=== PATIENT | male | born 1980 | race Caucasian/White ===

== ENCOUNTER 2021-10-28 16:51 | Emergency (ER) | payer MEDICAID ==
[~2021-10-28] VITALS: Ht 177.8 cm; Wt 79.4 kg
[2021-10-28 17:03] VITALS: BP 132/98
--- NOTE | 2021-10-28 17:03 | NUR ---
PT JEFERSON AND TAKEN TO LOBBY
[2021-10-28] MEDS ORDERED: CEPH-588 PO (18:47)
[2021-10-28] MEDS ORDERED: SULF-58 PO (18:47)
[2021-10-28 19:22] VITALS: BP 132/98
--- NOTE | 2021-10-28 19:22 | NUR ---
Patient discharged with v/s stable. Written and verbal after care instructions given and explained. Patient alert, oriented and verbalized understanding of instructions. Ambulatory with steady gait. All questions addressed prior to discharge. ID band removed. Patient advised to follow up with PMD. Rx of KEFLEX AND BACTRIM given. Patient educated on indication of medication including possible reaction and side effects. Opportunity to ask questions provided and answered.
[2021-10-29] MEDS ORDERED: IBUP-1842 PO (02:05)
== END 2021-10-28 19:22 | disposition home or self-care (01) ==
LOC: MED 16:51
DX: L03.113 Cellulitis of right upper limb (principal); F15.90 Other stimulant use, unspecified, uncomplicated; Z79.899 Other long term (current) drug therapy
CPT/HCPCS: 99283

== ENCOUNTER 2021-10-29 01:35 | Emergency (ER) | payer MEDICAID ==
[~2021-10-29] VITALS: Ht 177.8 cm; Wt 79.4 kg
[~2021-10-29 01:35] MED LIST: CEPH-588 PO; SULF-58 PO
[2021-10-29 01:57] VITALS: BP 150/94
[2021-10-29] MEDS ORDERED: IBUP-1842 PO (02:05)
[2021-10-29] MEDS ORDERED: KETOROLAC 60 MG/2 ML VIAL IM ONE (02:05)
[2021-10-29] MEDS ORDERED: cefTRIAXone 1,000 MG in LIDOCAINE MPF 1% 2.1 ML IM ONE (02:05)
--- NOTE | 2021-10-29 02:10 | NUR ---
ERMD EVALUATED PATIENT IN TRIAGE.
[2021-10-29] MEDS ORDERED: cefTRIAXone 1,000 MG VIAL ONE (02:37)
[2021-10-29] MEDS ORDERED: LIDOCAINE MPF 1% 5 ML ONE (02:39)
--- NOTE | 2021-10-29 02:45 | NUR ---
PATIENT OFFERED FOOD AND TRANSPORTATION ASSISTANCE AND REFUSED. PATIENT GIVEN ICE PACKS FOR PAIN MANAGEMENT AT HOME PER REQUEST.
[2021-10-29 02:55] VITALS: BP 138/78
== END 2021-10-29 02:55 | disposition home or self-care (01) ==
LOC: MED 01:35
DX: L03.113 Cellulitis of right upper limb (principal); Z79.899 Other long term (current) drug therapy
CPT/HCPCS: 96372; 99284; J0696; J1885; J2001

== ENCOUNTER 2021-10-30 03:14 | Inpatient (IN) | payer MEDICAID, SELFPAY ==
[~2021-10-30] VITALS: Ht 177.8 cm; Wt 90.3 kg
[~2021-10-30 03:14] MED LIST changes: +IBUP-1842 PO
[2021-10-30 03:31] VITALS: BP 141/91
--- NOTE | 2021-10-30 03:37 | NUR ---
TO LOBBY TO A/W EVALUATION
--- NOTE | 2021-10-30 03:50 | NUR ---
40 Y/O M PRESENTS TO ED WITH C/O EDEMA TO RT HAND. PT SEEN IN THIS ER ON 10/29 FOR SIMILAR COMPLAINT AND GIVNE RX FOR KEFLEX AND BACTRIM. PT STATES S/P TAKING MEDICATION HE HAD MORE PAIN AND SWELLING. +EDEMA TO RT HAND MEDHX- METH IV DRUG USER NKA
[2021-10-30] MEDS ORDERED: KETOROLAC 15 MG/ML VIAL IVP ONE (04:55)
[2021-10-30] MEDS ORDERED: VANCOMYCIN 1,000 MG in DEXTROSE 5% 250 ML IV ONE (04:55)
--- NOTE | 2021-10-30 05:09 | NUR ---
pt to chB
--- NOTE | 2021-10-30 05:20 | NUR ---
MANUFACTURING ENGINEER ASSEMBLY TEXTED FOR ADMISSION
--- NOTE | 2021-10-30 05:26 | NUR ---
ATTEMPTED IV INSERTION x2 UNSUCCESSFUL. DR. OG NOTIFIED.
[2021-10-30] MEDS ORDERED: VANCOMYCIN 1,000 MG VIAL ONE ×2 (06:20→20:26)
[2021-10-30] MEDS ORDERED: KETOROLAC 15 MG/ML VIAL ONE (06:21)
--- NOTE | 2021-10-30 06:35 | NUR ---
PT MEDICATED PER ERMD ORDERS. ALL NEEDS MET.
--- NOTE | 2021-10-30 07:00 | NUR ---
COVID SWAB COLELCTED AND TAKEN TO LAB.
--- NOTE | 2021-10-30 07:02 | NUR ---
REPORT GIVEN TO HUMBERTO GALLAGHER. TRANSFER OF CARE AT THIS TIME.
[2021-10-30] MEDS ORDERED: MAG SULF 2000 MG/WATER PREMIX 50 ML IV PRN (07:20)
[2021-10-30] MEDS ORDERED: ONDANSETRON 4 MG/2 ML VIAL IVP PRN (07:20)
[2021-10-30] MEDS ORDERED: LORazepam 2 MG/ML VIAL IM/IVP PRN (07:20)
[2021-10-30] MEDS ORDERED: DOCUSATE SODIUM 100 MG GELCAP PO PRN (07:20)
[2021-10-30] MEDS ORDERED: HYDROcodone/APAP 5/325 MG 1 TAB TAB PO PRN (07:20)
[2021-10-30] MEDS ORDERED: ZOLPIDEM 5 MG TAB PO PRN (07:20)
[2021-10-30] MEDS ORDERED: POTASSIUM CHLORIDE 10 MEQ TABER PO PRN (07:20)
[2021-10-30] MEDS ORDERED: ACETAMINOPHEN 325 MG TAB PO PRN (07:20)
[2021-10-30] MEDS ORDERED: SODIUM PHOS / POTASSIUM PHOS 1 PKT PDR PO PRN (07:20)
[2021-10-30 07:26] LABS: ANION GAP 13.4 (8-16); CARBON DIOXIDE 28.3 mmol/L (21-32); CREATININE 1.1 mg/dL (0.6-1.3); POTASSIUM 4.7 mmol/L (3.5-5.1)
[2021-10-30 07:35] LABS: BASOPHILS # (AUTO) 0.1 K/uL (0.00-0.22); BASOPHILS % (AUTO) 0.8 % (0.0-2.0); EOSINOPHILS # (AUTO) 0.1 K/uL (0-0.4); EOSINOPHILS % (AUTO) 1.2 % (0.0-4.0); HEMATOCRIT 42.2 % (36-52); HEMOGLOBIN 14.3 g/dL (12.0-18.0); LYMPHOCYTES # (AUTO) 1.1 K/uL (2.0-11.5); LYMPHOCYTES % (AUTO) 15.7 % (20.5-51.1); MEAN CORPUSCULAR HEMOGLOBIN 29 pg (27-31); MEAN CORPUSCULAR HGB CONC 34 g/dL (33-37); MEAN CORPUSCULAR VOLUME 83.9 fL (80-94); MONOCYTES # (AUTO) 0.6 K/uL (0.8-1.0); NEUTROPHILS # (AUTO) 5.4 K/uL (1.8-7.7); NEUTROPHILS % (AUTO) 74.3 % (42.2-75.2); PLATELET COUNT (AUTO) 265 K/uL (140-450); RED BLOOD CELL COUNT(AUTO) 5.03 MIL/uL (4.20-6.10); WHITE BLOOD COUNT (AUTO) 7.2 K/uL (4.8-10.8)
--- NOTE | 2021-10-30 07:46 | NUR ---
PT AMBULATED TO RESTROOM FOR URINE SAMPLE. SAMPLE COLLECTED AND WALKED TO LAB
[2021-10-30] MEDS: NACL 0.9% 1,000 ML IV SCH ×3 (08:00→19:48)
[2021-10-30 08:32] LABS: APPEARANCE,URINE CLEAR (CLEAR); BILIRUBIN,URINE NEGATIVE (NEGATIVE); BLOOD, URINE NEGATIVE (NEGATIVE); COLOR,URINE YELLOW (YELLOW); LEUKOCYTE ESTERASE ,URINE NEGATIVE (NEGATIVE); NITRITE, URINE NEGATIVE (NEGATIVE); UGLUCOSE NEGATIVE (NEGATIVE)
--- NOTE | 2021-10-30 09:01 | NUR ---
PT C/O 04/24 HAND PAIN AND REQUESTING PAIN MEDICATION, WILL CARRY OUT PRN ORDER
[2021-10-30] MEDS: MORPHINE SULFATE 2 MG/ML SYR IVP PRN ×3 (09:25→21:43)
[2021-10-30] MEDS ORDERED: VANCOMYCIN PER PHARMACY MC PRN (09:35)
[2021-10-30 09:51] LABS: BENZODIAZEPINE, URINE POSITIVE ng/mL (NEG <=200); CANNABINOID, URINE POSITIVE ng/mL (NEG <=50)
[2021-10-30 10:03] LABS: PROTHROMBIN TIME 9.5 secs (10.8-13.4)
[2021-10-30 11:08] LABS: CHOL/HDL RATIO 3.3 (1-4.5); PHOSPHORUS 3.8 mg/dL (2.5-4.9); THYROID STIMULATING HORMONE 1.73 uIU/mL (0.34-3.74)
--- NOTE | 2021-10-30 12:45 | NUR ---
PT TAKEN TO BED 12 FOR ECHO. WILL RETURN TO [facility].
--- NOTE | 2021-10-30 13:21 | NUR ---
PT PROVIDED WITH LUNCH TRAY
[2021-10-30] MEDS ORDERED: PIPERACILLIN/TAZOBACTAM 3.375 GM VIAL IV ONE ×2 (13:56→20:27)
--- NOTE | 2021-10-30 14:00 | NUR ---
PT C/O 6/10 HAND PAIN AND REQUESTING PAIN MEDICATION, WILL CARRY OUT PRN ORDER
[2021-10-30] MEDS: PIPERACILLIN/TAZOBACTAM 3.375 GM in DEXTROSE 5% 50 ML IV SCH ×2 (15:05→20:34)
--- NOTE | 2021-10-30 18:27 | NUR ---
PT GIVEN DINNER TRAY
[2021-10-30] MEDS ORDERED: VANCOMYCIN HCL 1.25 GM in DEXTROSE 5% 250 ML IV SCH (19:00)
--- NOTE | 2021-10-30 19:54 | NUR ---
REPORT GIVEN TO ARELI PAUL, TRANSFER OF CARE AT THIS TIME
--- NOTE | 2021-10-30 19:54 | NUR ---
PT REFUSED IV FLUIDS, STATED "THIS ISNT DOING ANYTHING" I DONT WANT IT.
--- NOTE | 2021-10-30 20:00 | NUR ---
REPORT RECEIVED FROM HUMBERTO GALLAGHER. ASSUMED CARE AT THIS TIME.
--- NOTE | 2021-10-30 21:35 | NUR ---
PT REQUESTING TO STOP VANCOMYCIN IVPB. PER PT "I JUST NEED REST TO GET BETTER. STOP THIS." INFUSION STOPPED AT THIS TIME. NADR NOTED.
--- NOTE | 2021-10-30 22:09 | NUR ---
PT SEATED UPRIGHT IN CHAIR WITH EYES CLOSED. NAD NOTED. WILL CONTINUE TO MONITOR.
--- NOTE | 2021-10-31 01:19 | NUR ---
PT SEATED UPRIGHT IN CHAIR WITH EYES CLOSED. NAD NOTED. WILL CONTINUE TO MONITOR.
[2021-10-31 02:38] VITALS: BP 141/87
[2021-10-31] MEDS: NACL 0.9% 1,000 ML IV SCH (03:20)
--- NOTE | 2021-10-31 04:35 | NUR ---
PT NOT FOUND IN DESIGNATED SEAT. UNABLE TO LOCATE PATIENT IN ER LOBBY OR OUTSIDE.
--- NOTE | 2021-10-31 04:37 | NUR ---
ROSARIO COBB, PT LEFT ER
--- NOTE | 2021-10-31 04:48 | NUR ---
PT ELOPED FACILITY AT THIS TIME. PT FOUND HIDING IN BUSHES NEAR HR BUILDING. PT STATES, "I CANT HEAL WITHOUT SLEEPING." RISK AND BENEFITS DISCUSSED WITH PT IN REGARDS TO LEAVING FACILITY AND PT ADAMENT ABOUT NOT CONTINING TREATMENT. IV LINE REMOVED AT THIS TIME. DR. ABBOTT NOTIFIED.
[2021-10-31] MEDS ORDERED: NAPR-54 PO (10:12)
== END 2021-10-31 04:48 | disposition left against medical advice (07) | DRG 383 ==
LOC: MED 03:14 → MTU 06:49
PROVIDERS: ADMIT Family Medicine; ATTEND Family Medicine
DX: L03.113 Cellulitis of right upper limb (principal); K85.90 Acute pancreatitis without necrosis or infection, unspecified; Z20.822 Contact with and (suspected) exposure to COVID-19; Z53.29 Procedure and treatment not carried out because of patient's decision for other reasons; Z79.1 Long term (current) use of non-steroidal anti-inflammatories (NSAID); Z79.2 Long term (current) use of antibiotics; Z79.899 Other long term (current) drug therapy
CPT/HCPCS: 36415; 71045; 73130; 76881; 80048; 82150; 83036; 83690; 83880; 84100; 84439; 84443; 84484; 85025; 85610; 85730; 87040; 96365; 96366; 96375; 99285; J1885; J2270; J2543; J3370; J7060; Q0092

== ENCOUNTER 2021-10-31 09:20 | Emergency (ER) | payer MEDICAID ==
[~2021-10-31] VITALS: Ht 177.8 cm; Wt 89.4 kg
[2021-10-31 09:38] VITALS: BP 136/83
[2021-10-31] MEDS ORDERED: NAPR-54 PO (10:12)
--- NOTE | 2021-10-31 10:40 | NUR ---
NO NURSING INTERVENTIONS PROVIDED
--- NOTE | 2021-10-31 10:41 | NUR ---
ATTEMPTED TO CALL PATIENT FOR D/C WORK AND INSTRUCTIONS, NOT LOCATED IN LOBBY OR OUTSIDE.
--- NOTE | 2021-10-31 10:45 | NUR ---
PATIENT LEFT WITHOUT D/C WORK AND INSTRUCTIONS.
== END 2021-10-31 10:45 | disposition home or self-care (01) ==
LOC: MED 09:20
DX: L03.113 Cellulitis of right upper limb (principal); F17.200 Nicotine dependence, unspecified, uncomplicated; F12.90 Cannabis use, unspecified, uncomplicated; Z79.899 Other long term (current) drug therapy; Z98.890 Other specified postprocedural states
CPT/HCPCS: 99284